=== PATIENT | female | born 1995 | race Asian ===

== ENCOUNTER 2019-11-24 20:23 | Emergency (ER) | payer BC ==
[~2019-11-24] VITALS: Ht 160 cm; Wt 77.1 kg
--- NOTE | 2019-11-24 21:14 | Emergency Room Report ---
History of Present Illness General Chief Complaint: Upper Respiratory Illness Source: Patient Present Illness HPI Patient is a 24-year-old female presents after increased nasal congestion and cough. She reports having several days of fever as well as body aches and occasional chills. She denies any dysuria. Denies being . She reports having some sore throat as well as some mouth sores. Denies any productive cough. She had not been vomiting. Reports having multiple sick contacts at work. Reports having a prior history of headaches and does state that she has some headache with no neck stiffness or photophobia. Allergies: Uncoded Allergies: SEAFOOD (Allergy, Unknown, 11/24/19) SWELLING Patient History Past Medical History: see triage record Last Menstrual Period: PCOS, irrigular cycle Reviewed Nursing Documentation: PMH: Agreed; PSxH: Agreed Nursing Documentation-PMH Past Medical History: No Stated History Review of Systems All Other Systems: negative except mentioned in HPI Physical Exam Vital Signs Date Time Temp Pulse Resp B/P (MAP) Pulse Ox O2 Delivery O2 Flow Rate FiO2 11/24/19 20:49 97.9 75 16 119/82 (94) 98 Room Air General Appearance: well appearing, no apparent distress, alert, GCS 15 Head: normocephalic, atraumatic ENT: normal ENT inspection, hearing grossly normal, normal voice Neck: full range of motion, supple Respiratory: lungs clear, normal breath sounds, no respiratory distress, speaking full sentences Cardiovascular #1: normal inspection, normal peripheral pulses, regular rate, rhythm Gastrointestinal: normal inspection, normal bowel sounds, non tender Musculoskeletal: normal inspection, no calf tenderness Neurologic: alert, motor strength/tone normal, md physician dermatologist III-XII nml as tested, oriented x3, normal gait Psychiatric: normal inspection, judgement/insight normal, mood/affect normal Skin: no rash Medical Decision Making Diagnostic Impression: Primary Impression: Viral upper respiratory infection ER Course Patient presented for fever and nasal congestion. Differential diagnosis include was not limited to viral pneumonia, bronchitis, seasonal allergies among others. X-ray imaging was ordered due to patient's symptoms as well as flu study. X-ray imaging read by radiology showed no evidence of acute infiltrate or other pathology. patient is given ibuprofen. Patient does not appear to have any evidence of systemic toxicity at this time. She has normal oxygen saturation as well as normal heart rate. Patient was advised to remain off work until symptoms improved. Given patient's symptoms. She was advised to self quarantine. She was advised to return if any worsening of condition or other concerns. This medical record is generated with [employer] customer support manager software. There may be some customer support manager discrepancies related to use of this software Last Vital Signs Date Time Temp Pulse Resp B/P (MAP) Pulse Ox O2 Delivery O2 Flow Rate FiO2 11/24/19 20:49 97.9 75 16 119/82 (94) 98 Room Air Status: improved Disposition: HOME, SELF-CARE Condition: Stable Scripts Guaifenesin/Dextromethorphan* (Guaifenesin Dm Syrup*) 5 Ml Syrup 5 ML ORAL Q8H PRN for FOR COUGH, #118 ML 0 Refills Prov: Kelby Winslow MD 11/24/19 Ibuprofen* (MOTRIN*) 600 Mg Tablet 600 MG ORAL Q8H PRN for For Pain, #20 TAB 0 Refills Prov: Kelby Winslow MD 11/24/19 Kelby Winslow MD Nov 24, 2019 21:14
[2019-11-24 21:24] VITALS: BP 119/82
--- NOTE | 2019-11-24 21:45 | NUR ---
ED Nurse Note: Pt walked in c/o nasal mucus, headache, sore throat since 11/18. Pt stated she is taking antihistamine to control her symptoms but it has not been effective. Pt stated she has a dry cough which causes her pain, specifically to the R side of her ribs. Denies n/v, shortness of breath, or chest pain at this time
[2019-11-24] MEDS ORDERED: IBUPROFEN600 MG ORAL (22:23)
[2019-11-24] MEDS ORDERED: GUAIFENESIN DM118 M1 ORAL (22:23)
[2019-11-24 22:35] VITALS: BP 119/82
--- NOTE | 2019-11-24 22:35 | NUR ---
ED Nurse Note: Pt cleared by health care Provider for discharge. DC instructions and prescription was given and explained to pt. pt verbalized understanding of teachings. All medical devices such as ID band removed. Pt is AAO x4, ambulatory and left with all personal belongings.
--- NOTE | 2019-11-24 22:51 | Diagnostic Imaging Report ---
EXAM: XR Chest, 1 View CLINICAL HISTORY: SOB TECHNIQUE: Frontal view of the chest. COMPARISON: None. FINDINGS: Limitations: Exam is limited due to lordotic projection. Lungs: Unremarkable. No consolidation. Pleural space: Unremarkable. No pneumothorax. Heart: Unremarkable. No cardiomegaly. Mediastinum: Unremarkable. Bones/joints: Unremarkable. IMPRESSION: Normal chest x-ray.
== END 2019-11-24 22:35 | disposition home or self-care (01) ==
LOC: EMR 21:31
DX: R05 Cough (principal); K13.79 Other lesions of oral mucosa; Z91.013 Allergy to seafood
CPT/HCPCS: 71045; 81025; 86710; 99283